=== PATIENT | male | born 1945 | race Caucasian/White ===

== ENCOUNTER 2017-07-18 11:38 | Emergency (ER) | payer OTHER ==
[2017-07-18 11:42] VITALS: BP 148/83; PULSE 95; TEMP 98.7; BMI 25.0
[2017-07-18] MEDS ORDERED: CEPHALEXIN MONOHYDRATE 250 MG CAPSULE (FP) ONE (14:54)
[2017-07-18] MEDS ORDERED: CEPHALEXIN MONOHYDRATE 500 MG CAPSULE (UD) PO ONE (14:55)
--- NOTE | 2017-07-18 15:07 | PDOC ---
Attending Attestation - Resident Resident Name: Priscilla Garland - ED Attending Attestation I have performed the following: I have examined & evaluated the patient, The case was reviewed & discussed with the resident, I agree w/resident's findings & plan, Exceptions are as noted - HPI HPI: 07/18/17 15:02 71 M with no PMH presents to ER with abscess to L worship. Pt states that he shaved his head and nicked his skin. Since then, it has gotten swollen and red, with some yellow drainage. He denies any F/C. - Physicial Exam PE: 07/18/17 15:06 "GENERAL: Awake, alert, and fully oriented, in no acute distress HEAD: No signs of trauma EYES: PERRLA, EOMI, sclera anicteric, conjunctiva clear ENT: Auricles normal inspection, hearing grossly normal, nares patent, oropharynx clear without exudates. Moist mucosa NECK: Normal ROM, supple, no lymphadenopathy, JVD, or masses LUNGS: Breath sounds equal, clear to auscultation bilaterally. No wheezes, and no crackles HEART: Regular rate and rhythm, normal S1 and S2, no murmurs, rubs or gallops ABDOMEN: Soft, nontender, normoactive bowel sounds. No guarding, no rebound. No masses EXTREMITIES: Normal range of motion, no edema. No clubbing or cyanosis. No cords, erythema, or tenderness NEUROLOGICAL: Cranial nerves II through XII grossly intact. Normal speech, normal gait SKIN: 3cm area of induration and fluctuance to L forehead. Surrounding erythema present, no active drainage. " - Medical Decision Making 07/18/17 15:07 71 M with abscess to L forehead s/p knicking it while shaving. - I&D - Abx - Tdap - Wound check in 48 hours
[2017-07-18] MEDS ORDERED: DIPHTH,PERTUSS(ACELL),TET VAC 0.5 ML VIAL IM ONE (15:08)
--- NOTE | 2017-07-18 15:28 | PDOC ---
History of Present Illness - General Chief Complaint: Abscess Boil Stated Complaint: ABSCESS ON HEAD Time Seen by Provider: 07/18/17 12:04 History Source: Patient - History of Present Illness Initial Comments: 07/18/17 16:06 CC: 5 day h/o of L temporal abscess Patient is a 71 y.o. male with no self-reported PMH who presents to our ED c/o of an abscess which he attributes to a infected shaving scab. Patient state he initially shaved over the area and noted a small laceration. Patient then accidentally shaved over the scab a few days subsequent causing a small bleed. Patient noted the area became tender to palpation and fluid filled over the next 2-3 days prompting his visit to the ED. Patient denies any fevers, chills , nausea, vomiting, chest pain or shortness of breath. Past History - Past Medical History Allergies/Adverse Reactions: Allergies Allergy/AdvReac Type Severity Reaction Status Date / Time No Known Allergies Allergy Verified 07/20/17 15:12 Home Medications: Ambulatory Orders Cephalexin Monohydrate [Keflex -] 500 mg PO BID #20 capsule 07/18/17 Other medical history: enlarged prostate - Psycho/Social/Smoking Cessation Hx Suicidal Ideation: No Smoking History: Never smoked Information on smoking cessation initiated: No Hx Alcohol Use: No Drug/Substance Use Hx: No Substance Use Type: None Review of Systems - Review of Systems Constitutional: No: Chills, Fever HEENTM: No: Blurred Vision, Double Vision Respiratory: No: Shortness of Breath Cardiac (ROS): No: Chest Pain, Edema ABD/GI: No: Constipated, Diarrhea, Nausea, Vomiting Neurological: No: Headache, Numbness, Tingling, Tremors All Other Systems: Reviewed and Negative *Physical Exam - Vital Signs Last Vital Signs Temp Pulse Resp BP Pulse Ox 98.7 F 95 H 19 148/83 98 07/18/17 11:40 07/18/17 11:40 07/18/17 11:40 07/18/17 11:40 07/18/17 11:40 - Physical Exam General Appearance: Yes: Nourished, Appropriately Dressed HEENT: positive: EOMI, AYESHA Neck: positive: Trachea midline, Supple Respiratory/Chest: positive: Lungs Clear Cardiovascular: positive: Regular Rhythm, Regular Rate Musculoskeletal: positive: Normal Inspection Integumentary: positive: Other (L 4 cm diameter circular fluctuant induration) ED Treatment Course - Medications Given in the ED: ED Medications Discontinued Medications Generic Name Dose Route Start Last Admin Trade Name Todd PRN Reason Stop Dose Admin Cephalexin HCl 500 mg 07/18/17 14:55 07/18/17 14:56 Keflex - PO 07/18/17 14:56 500 mg ONCE ONE Administration Diphtheria/Tetanus/Acell Pertussis 0.5 ml 07/18/17 15:08 07/18/17 15:13 Adacel Adolescent/Adult - IM 07/18/17 15:09 0.5 ml .ONCE ONE Administration Oxycodone/Acetaminophen 1 combo 07/18/17 14:51 07/18/17 14:53 Percocet 5/325 - PO 07/18/17 14:52 1 combo ONCE ONE Administration Medical Decision Making - Medical Decision Making 07/20/17 15:12 Patient is a 71 y.o. male who presents with a L sided facial abscess. I&D performed using 1% Lidocaine for anesthesia and 11 blade with significant breaking of loculations and purulent discharge expression. Patient given TDap and discharged home with instruction to return for wound check in 48 hours. Patient also given a prescription for Cephalexin and instructed to return to ED prior to wound check should he develop any fevers, pain or erythema at site of I &D. *DC/Admit/Observation/Transfer Diagnosis at time of Disposition: Abscess - Discharge Dispostion Disposition: HOME Condition at time of disposition: Good - Prescriptions Prescriptions: Cephalexin Monohydrate [Keflex -] 500 mg PO BID #20 capsule - Referrals Referrals: STAFF,NOT ON [Primary Care Provider] - - Patient Instructions Printed Discharge Instructions: DI for Incision and Drainage of a Skin Abscess Additional Instructions: You were treated today for a abscess with incision and drainage. Please return to the Emergency Department immediately should you experience any chest pain, fevers, chills, vomiting, shortness of breath or severe discomfort. Otherwise, please return on Thursday July 20, 2017 between 7a-7p and ask to see Dr. Garland for a wound check.
== END 2017-07-18 15:32 | disposition home or self-care (01) ==
LOC: JER 11:38 → JERFT 11:38 → JER 15:32
PROC: 0J910ZZ Drainage of Face Subcutaneous Tissue and Fascia, Open Approach (ICD-10-PCS; principal; 2017-07-18)
PROC: 3E0234Z Introduction of Serum, Toxoid and Vaccine into Muscle, Percutaneous Approach (ICD-10-PCS; 2017-07-18)
DX: L02.01 Cutaneous abscess of face (principal)
CPT/HCPCS: 10060; 90471; 90715; 99282-25

== ENCOUNTER 2017-07-20 14:58 | Emergency (ER) | payer OTHER ==
[2017-07-20 15:15] VITALS: BP 133/74; PULSE 95; TEMP 98.2; BMI 27.3
--- NOTE | 2017-07-20 15:45 | PDOC ---
Suture Removal/Wound Check HPI - History of Present Illness Chief Complaint: Revisit,Wound Recheck Stated Complaint: FOLLOW-UP Time Seen by Provider: 07/20/17 15:29 History Source: Yes: Patient Exam Limitations: Yes: No Limitations Treated at: [facility] Date of Last ED visit: 07/18/17 - Previous ED Treatment Type of procedure performed on last visit: Yes: I&D of Abscess - Onset of Previous Treatment Comment:: 71 yo M history L facial abscess 2 days ago. He states his pain has improved. He has been taking abx as prescribed. Denies fever, drainage from wound. Past History - Past Medical History Allergies/Adverse Reactions: Allergies No Known Allergies Allergy (Verified 07/20/17 15:12) Home Medications: Ambulatory Orders Cephalexin Monohydrate [Keflex -] 500 mg PO BID #20 capsule 07/18/17 - Social History Smoking Status: Never smoked Suture Removal/Wound Check PE - Physical Exam Comments: GENERAL: Awake, alert, and fully oriented, in no acute distress HEAD: No signs of trauma EYES: PERRLA, EOMI, sclera anicteric, conjunctiva clear ENT: Auricles normal inspection, hearing grossly normal, nares patent, oropharynx clear without exudates. Moist mucosa NECK: Normal ROM, supple, no lymphadenopathy, JVD, or masses EXTREMITIES: Normal range of motion, no edema. No clubbing or cyanosis. No cords, erythema, or tenderness SKIN: Warm, Dry, normal turgor. L scientologist s/p I&D, minimal purulent drainage on exam, minimal induration. *Review of Systems - Review of Systems Able to Perform ROS?: Yes Comments:: GENERAL/CONSTITUTIONAL: No fever or chills. No weakness. HEAD, EYES, EARS, NOSE AND THROAT: No change in vision. No ear pain or discharge. No sore throat. MUSCULOSKELETAL: No joint or muscle swelling or pain. No neck or back pain. SKIN: No rash NEUROLOGIC: No headache, vertigo, loss of consciousness, or change in strength/ sensation. Medical Decision Making - Medical Decision Making Bacitracin and sterile gauze applied. No further intervention necessary. *DC/Admit/Observation/Transfer Diagnosis at time of Disposition: Abscess - Discharge Dispostion Disposition: HOME Condition at time of disposition: Stable Admit: No - Referrals Referrals: STAFF,NOT ON [Primary Care Provider] - - Patient Instructions Printed Discharge Instructions: DI for Incision and Drainage of a Skin Abscess Additional Instructions: Aplique gasa limpia dos veces al da hasta que la herida se cure. Print Language: LIBYAN - Post Discharge Activity
== END 2017-07-20 15:54 | disposition home or self-care (01) ==
LOC: JERFT 14:58
DX: L02.811 Cutaneous abscess of head [any part, except face] (principal)
CPT/HCPCS: 99281-25